=== PATIENT | female | born 1995 | race Caucasian/White ===

== ENCOUNTER 2016-03-23 03:23 | Emergency (ER) | payer SELFPAY ==
[2016-03-23 03:32] VITALS: TEMP 98.9; BMI 30.9
[2016-03-23] MEDS ORDERED: OXYCODONE HCL 5 MG TABLET PO ONE (03:46)
[2016-03-23] MEDS ORDERED: LIDOCAINE 2% 5 ML (PRESERVATIVE FREE) VIAL INF ONE (03:46)
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
[2016-03-23 05:35] VITALS: BP 105/61; PULSE 88
== END 2016-03-23 05:47 | disposition home or self-care (01) ==
LOC: ED 03:23
DX: S00.531A Contusion of lip, initial encounter (principal); S01.511A Laceration without foreign body of lip, initial encounter; W50.0XXA Accidental hit or strike by another person, initial encounter; Y93.9 Activity, unspecified
CPT/HCPCS: 12051; 70450; 81025; 99283; J2001; J3490